=== PATIENT | female | born 2000 | race Caucasian/White ===

== ENCOUNTER 2020-01-11 05:29 | Emergency (ER) | payer SELFPAY ==
[~2020-01-11] VITALS: Ht 170.2 cm; Wt 80.3 kg
[2020-01-11 05:32] VITALS: BP 157/99
--- NOTE | 2020-01-11 05:38 | NUR ---
PT AMBULATED TO BED 11 WITYH STEADY GAIT.
[2020-01-11 05:50] VITALS: BP 157/99
--- NOTE | 2020-01-11 05:51 | NUR ---
19 Y/O F PRESENTS TO ED C/O PAINFUL URINATION AND BLOODY URINE X 2 DAYS. PT STATES " MY BLADDER HURTS A LOT". DENIES SOB/COUGH. DENIES LOC. PT STATES TAKING MECLIZINE. ERMD MADE AWARE. MHX: ANXIETY ALLERGIES: COMPAZINE, BENADRYL, VISTARIL
--- NOTE | 2020-01-11 05:51 | NUR ---
REBECCA MAJOR AT BEDSIDE.
--- NOTE | 2020-01-11 05:55 | NUR ---
Patient discharged with v/s stable. Written and verbal after care instructions given and explained. Patient verbalized understanding. Ambulatory with steady gait. All questions addressed prior to discharge. Advised to follow up with PMD. PT GIVEN REFERRAL FOR FAMILY PHYSICIAN
== END 2020-01-11 05:55 | disposition home or self-care (01) ==
LOC: MED 05:29
DX: R31.9 Hematuria, unspecified (principal); R03.0 Elevated blood-pressure reading, without diagnosis of hypertension; Z88.5 Allergy status to narcotic agent; Z88.8 Allergy status to other drugs, medicaments and biological substances
CPT/HCPCS: 81002; 81025; 99282